=== PATIENT | female | born 1970 | race Caucasian/White ===

== ENCOUNTER 2016-07-05 10:20 | Emergency (ER) | payer OTHER ==
--- NOTE | ~2016-07-05 | CT4 ---
[facility] A Service of [facility] RADIOLOGY TEXT RESULTS PATIENT: TEDDY THOMAS LOCATION: [facility] : 68 UNIT #: [id number] AGE: [address]: Darvin Trujillo MD SEX: F ORDER DR: [id number] [facility] [address] [place], [place] [address] [id number] E MR#: [id number] Acc #: [id number] NAME: TEDDY THOMAS : 1970 SEX: F STUDY DATE/TIME: 07/05/2016 9:51 UNIT: [facility] ROOM: STUDY DESCRIPTION: CT Abd and Pelv Wo Cont Attending Physician: Darvin Trujillo M.D. Ordering Physician: Darvin Trujillo M.D. Primary Care Physician: Clive Bolden M.D. MEDICAL IMAGING REPORT This report is preliminary unless electronic signature is present EXAM CT abdomen and pelvis without contrast, 07/05/2016 HISTORY 45-year-old female with nausea, vomiting and diarrhea and back pain for [address] abdomen and pelvis, 09/08/2015 TECHNIQUE Helical scan performed through the abdomen and pelvis without oral or IV contrast. Coronal and sagittal reformatted images. This CT exam was performed with one or more of the following radiation dose reduction techniques: automatic exposure control, adjustment of mA and/or kV according to patient size, and iterative reconstruction. FINDINGS Visualized lung bases are unremarkable. The liver, spleen, pancreas, both adrenal glands, and both kidneys are within normal limits. No urinary tract stones or hydronephrosis. Gallbladder is surgically absent. Abdominal aorta normal in course and caliber with scattered atherosclerotic calcification. Small bowel is unremarkable without obstruction. Appendix is grossly normal. There is sigmoid colonic diverticulosis. There is a small focal area of soft tissue inflammatory stranding and a tiny foci of gas near the mid sigmoid colon in the left pelvis. This could represent an inflamed diverticulum in the setting of diverticulitis. Early developing small abscess is not completely excluded on this unenhanced exam. The urinary bladder, uterus, and both adnexa are unremarkable. No [facility] A Service of [facility] RADIOLOGY TEXT RESULTS PATIENT: TEDDY THOMAS [id number] [birth year] UNIT #: [id number] AGE: [address]: Darvin Trujillo MD SEX: F ORDER DR: significant free pelvic fluid. No acute bony abnormality. IMPRESSION 1. There is a small focus of soft tissue inflammation and a tiny foci of gas noted adjacent to the mid sigmoid colon in the lower left pelvis. The patient does have diverticulosis and this may represent an inflamed diverticulum and acute diverticulitis. A small developing abscess is not completely excluded on this unenhanced exam. 2. Normal appendix. 3. Negative for urinary tract stones or hydronephrosis. 4. Cholecystectomy. Dictated by... Thom Babcock M.D. THIS IS AN ELECTRONICALLY VERIFIED REPORT Thom Babcock M.D. at 07/07/2016 8:30 AM Slime TD: 07/06/2016 09:15 JOB #: [id number] MEDICAL IMAGING REPORT Page 1 of 1 COPY
[2016-07-05 09:38] LABS: URINE SOURCE CLEAN CATCH
[2016-07-05 09:39] LABS: BASOPHIL# 0.1 X10e3 (0-0.3); BASOPHIL% 1.2 % (0-2.5); EOSINOPHIL% 0.2 % (0.0-7.0); HEMATOCRIT 35.8 % (35.0-45.0); HEMOGLOBIN 11.7 gm/dL (12.0-16.0); LYMPHOCYTE# 1.2 X10e3 (1.0-3.5); LYMPHOCYTE% 11.4 % (17.0-45.0); MEAN CORPUSCULAR HEMOGLOBIN 24.3 PG (28-34); MEAN CORPUSCULAR HGB CONC 32.8 g/dL (30-36); MEAN PLATELET VOLUME 8.5 FL (6.5-11.5); MONOCYTE# 0.4 X10e3 (0-1.0); MONOCYTE% 4.1 % (3.0-12.0); NEUTROPHIL# 8.6 X10e3 (1.5-7.1); NEUTROPHIL% 83.1 % (40-75); PLATELET COUNT 248 X10e3 (140-420); RED BLOOD COUNT 4.84 X10e (3.90-5.30); RED CELL DISTRIBUTION WIDTH 19.7 % (11.0-15.5); WHITE BLOOD COUNT 10.3 X10e3 (4.0-10.5)
[2016-07-05 09:40] LABS: DIFF IND NO
[2016-07-05 09:42] LABS: URINE APPEARANCE CLEAR; URINE BILIRUBIN NEG (NEG); URINE BLOOD NEG (NEG); URINE COLOR YELLOW; URINE GLUCOSE 500 MG/DL (NEG); URINE KETONE NEG (NEG); URINE LEUKOCYTE ESTERASE NEG (NEG); URINE NITRATE NEG (NEG); URINE PROTEIN 1+ (NEG); URINE UROBILINOGEN 0.2 MG/DL (NEG)
[2016-07-05 09:45] LABS: CULTURE INDICATED? NO; URBCS1 AUWI 0-2 /[HPF] (0-2); URINE BACTERIA AUWI NEG (NEGATIVE); URINE SQUAMOUS EPITHELIAL CELL NONE SEEN /[HPF]
[2016-07-05 10:19] LABS: ALBUMIN SERUM 3.9 g/dL (3.5-5.0); ALKALINE PHOSPHATASE 87 U/L (32-92); ALT (SGPT) 20 U/L (10-40); AST (SGOT) 27 U/L (10-42); BILIRUBIN, DIRECT 0.1 mg/dL (0.0-0.2); BILIRUBIN,INDIRECT 0.3 mg/dL (0.0-0.9); BILIRUBIN,TOTAL 0.4 mg/dL (0.2-2.0); BLOOD UREA NITROGEN 12 mg/dL (9-23); CALCIUM SERUM 9.6 mg/dL (8.4-10.2); CARBON DIOXIDE 26 mmol/L (22-31); CHLORIDE 95 mmol/L (100-111); GLOM FILT RATE Estimated ABOVE60 mL/min (>60); GLUCOSE FASTING 251 mg/dL (70-110); LIPASE 19 U/L (22-51); PROTEIN TOTAL SERUM 7.8 g/dL (6.0-8.3); SODIUM 136 mmol/L (135-145)
[~2016-07-05 10:20] MED LIST: ALBUTEROL 0.5ML INH; ALLERGY MEDICAT25 M1 PO; AMLODIPINE BESYL5 MG PO; ASPIRIN81 M2 PO; FLEXERIL10 MG PO; HYDROCHLOROTHIA25 MG PO; LOPRESSOR PO; LORTAB 5/500 TA1 TA1 PO; MEDROL4 MG/DOSE- PO; MILK OF MAGNESIA PO; NAPROSYN500 MG PO; NORVASC PO; PERCOCET 7.5/321 TAB PO; PREDNISONE PO; PRINIVIL20 M1 PO; PRINIVIL40 MG PO; PROMETHAZI6.25 MG/5 PO; PROTONIX PO; VOLTAREN50 MG PO; ZESTRIL10 M2 PO; ZOLOFT50 MG PO
[2016-07-05 10:22] LABS: POTASSIUM 2.8 mmol/L (3.5-5.1)
== END 2016-07-05 13:00 | disposition home or self-care (01) ==
LOC: CED 10:20
PROVIDERS: Emergency Medicine
DX: E87.6 Hypokalemia (principal); R10.9 Unspecified abdominal pain; R11.2 Nausea with vomiting, unspecified; I10 Essential (primary) hypertension; Z88.1 Allergy status to other antibiotic agents; Z88.8 Allergy status to other drugs, medicaments and biological substances
CPT/HCPCS: 36415; 74176; 80048; 80076; 81003; 83690; 84703; 85025; 96361; 96365; 96366; 96375; 96376; 99284; J1885; J2405

== ENCOUNTER 2016-11-02 19:03 | Emergency (ER) | payer OTHER ==
[~2016-11-02] VITALS: Ht 152.4 cm; Wt 99.8 kg
[2016-11-02 20:53] LABS: BASOPHIL% 0.5 % (0-2.5); EOSINOPHIL# 0.1 X10e3 (0-0.7); EOSINOPHIL% 1.5 % (0.0-7.0); HEMATOCRIT 36.1 % (35.0-45.0); HEMOGLOBIN 11.7 gm/dL (12.0-16.0); LYMPHOCYTE# 2.9 X10e3 (1.0-3.5); LYMPHOCYTE% 32.1 % (17.0-45.0); MEAN CELL VOLUME 76.6 FL (83-96); MEAN CORPUSCULAR HEMOGLOBIN 24.9 PG (28-34); MEAN CORPUSCULAR HGB CONC 32.5 g/dL (30-36); MEAN PLATELET VOLUME 8.8 FL (6.5-11.5); MONOCYTE# 0.7 X10e3 (0-1.0); MONOCYTE% 7.4 % (3.0-12.0); NEUTROPHIL# 5.3 X10e3 (1.5-7.1); NEUTROPHIL% 58.5 % (40-75); PLATELET COUNT 238 X10e3 (140-420); RED BLOOD COUNT 4.71 X10e (3.90-5.30); RED CELL DISTRIBUTION WIDTH 17.6 % (11.0-15.5)
[2016-11-02 20:54] LABS: DIFF IND NO
[2016-11-02] MEDS ORDERED: AMLODIPINE BESYL5 MG PO (21:01)
[2016-11-02] MEDS ORDERED: ALDACTAZIDE 251 EACH PO (21:01)
[2016-11-02] MEDS ORDERED: KLOR-CON SPRIN10 MEQ PO (21:02)
[2016-11-02] MEDS ORDERED: ZOLOFT50 MG PO (21:02)
[2016-11-02] MEDS ORDERED: PROTONIX40 M1 PO (21:02)
[2016-11-02] MEDS ORDERED: METOPROLOL SUCC25 MG PO (21:03)
[2016-11-02 21:12] LABS: BUN/CREATININE RATIO 12.22; CALCIUM SERUM 9.5 mg/dL (8.4-10.2); CREATININE SERUM 0.9 mg/dL (0.6-1.4); GLOM FILT RATE Estimated 76.7 mL/min (>60); POTASSIUM 3.2 mmol/L (3.5-5.1)
== END 2016-11-02 22:19 | disposition home or self-care (01) ==
LOC: CED 19:03
PROVIDERS: Emergency Medicine
DX: M62.838 Other muscle spasm (principal); E87.6 Hypokalemia; I10 Essential (primary) hypertension; F32.9 Major depressive disorder, single episode, unspecified; F17.210 Nicotine dependence, cigarettes, uncomplicated; Z79.899 Other long term (current) drug therapy; Z88.0 Allergy status to penicillin; Z88.5 Allergy status to narcotic agent; Z88.8 Allergy status to other drugs, medicaments and biological substances
CPT/HCPCS: 36415; 80048; 85025; 99283

== ENCOUNTER 2016-11-04 23:47 | Emergency (ER) | payer OTHER ==
--- NOTE | ~2016-11-04 | CT2 ---
[facility] A Service [facility] RADIOLOGY TEXT RESULTS PATIENT: TEDDY THOMAS LOCATION: [facility] : 68 UNIT #: [id number] AGE: [address]: Ranjeet Bolanos MD SEX: F ORDER DR: [id number] [address] [address] [id number] E MR#: [id number] Acc #: [id number] NAME: TEDDY THOMAS. : 1970 SEX: F STUDY DATE/TIME: 11/05/2016 3:48 UNIT: [facility] ROOM: STUDY DESCRIPTION: CT Abd and Pelv W Cont Attending Physician: Ranjeet Bolanos M.D. Ordering Physician: Ranjeet Bolanos M.D. Primary Care Physician: No Primary Care Physician MEDICAL IMAGING REPORT This report is preliminary unless electronic signature is present EXAM CT abdomen and pelvis with contrast INDICATIONS Nausea, vomiting, generalized abdominal pain for the past 3 days. PROCEDURE Contrast-enhanced CT of the abdomen and pelvis. This CT exam was performed with one or more of the following radiation dose reduction techniques: automatic exposure control, adjustment of mA and/or kV according to patient size, and iterative reconstruction. COMPARISON 07/05/2016 FINDINGS ABDOMEN WITH CONTRAST: Included lung bases are clear. Liver, spleen, kidneys, adrenal glands, pancreas show no acute abnormality. Previous cholecystectomy. Bowel loops nondilated. No fluid collection. PELVIS WITH CONTRAST: No pelvic mass or fluid. No aggressive- appearing bone lesion. IMPRESSION 1. No acute findings in the abdomen or pelvis. 2. Not mentioned above, there are a few sigmoid diverticula without definitive evidence for acute complication. Dictated by... Oliver Kelley M.D. [facility] A [facility] RADIOLOGY TEXT RESULTS PATIENT: TEDDY THOMAS LOCATION: [facility] : 68 UNIT #: [id number] AGE: [address]: Ranjeet Bolanos MD SEX: F ORDER DR: THIS IS AN ELECTRONICALLY VERIFIED REPORT Oliver Kelley M.D. at 11/05/2016 9:52 PM Brenda TD: 11/05/2016 11:57 JOB #: [id number] MEDICAL IMAGING REPORT Page 1 of 1 COPY
[~2016-11-04 23:47] MED LIST changes: +ALDACTAZIDE 251 EACH PO; +KLOR-CON SPRIN10 MEQ PO; +METOPROLOL SUCC25 MG PO; +PROTONIX40 M1 PO
[2016-11-05 01:37] LABS: BASOPHIL# 0.1 X10e3 (0-0.3); BASOPHIL% 0.6 % (0-2.5); EOSINOPHIL# 0.1 X10e3 (0-0.7); EOSINOPHIL% 0.5 % (0.0-7.0); HEMATOCRIT 39.3 % (35.0-45.0); HEMOGLOBIN 12.5 gm/dL (12.0-16.0); LYMPHOCYTE# 1.8 X10e3 (1.0-3.5); LYMPHOCYTE% 15.2 % (17.0-45.0); MEAN CORPUSCULAR HEMOGLOBIN 24.4 PG (28-34); MEAN CORPUSCULAR HGB CONC 31.7 g/dL (30-36); MONOCYTE# 0.6 X10e3 (0-1.0); MONOCYTE% 5.3 % (3.0-12.0); NEUTROPHIL# 9.1 X10e3 (1.5-7.1); NEUTROPHIL% 78.4 % (40-75); PLATELET COUNT 215 X10e3 (140-420); RED BLOOD COUNT 5.11 X10e (3.90-5.30); RED CELL DISTRIBUTION WIDTH 17.7 % (11.0-15.5); WHITE BLOOD COUNT 11.6 X10e3 (4.0-10.5)
[2016-11-05 01:40] LABS: DIFF IND NO
[2016-11-05 02:09] LABS: ALBUMIN SERUM 4.6 g/dL (3.5-5.0); BILIRUBIN, DIRECT 0.1 mg/dL (0.0-0.2); BILIRUBIN,INDIRECT 0.6 mg/dL (0.0-0.9); BILIRUBIN,TOTAL 0.7 mg/dL (0.2-2.0); BUN/CREATININE RATIO 16.36; CALCIUM SERUM 9.6 mg/dL (8.4-10.2); CREATININE SERUM 1.1 mg/dL (0.6-1.4); GLOM FILT RATE Estimated 59.8 mL/min (>60); PROTEIN TOTAL SERUM 8.7 g/dL (6.0-8.3)
[2016-11-05 02:37] LABS: URINE SOURCE CLEAN CATCH
[2016-11-05 02:45] LABS: URINE APPEARANCE CLOUDY; URINE BILIRUBIN NEG (NEG); URINE BLOOD NEG (NEG); URINE COLOR YELLOW; URINE GLUCOSE 250 MG/DL (NEG); URINE KETONE TRACE (NEG); URINE LEUKOCYTE ESTERASE TRACE (NEG); URINE NITRATE NEG (NEG); URINE PH 5.5 (5-8); URINE PROTEIN 1+ (NEG); URINE SPECIFIC GRAVITY 1.022 (1.003-1.035); URINE UROBILINOGEN 0.2 MG/DL (NEG)
[2016-11-05 02:52] LABS: CULTURE INDICATED? YES; URINE BACTERIA AUWI 1+ (NEGATIVE); URINE SQUAMOUS EPITHELIAL CELL FEW /[HPF]
[2016-11-05 02:59] LABS: AMPHETAMINE NEG (NEG); BARBITURATES NEG (NEG); BENZODIAZEPINES NEG (NEG); COCAINE POS (NEG); MARIJUANA NEG (NEG); OPIATES NEG (NEG); TRICYCLIC ANTIDEPRESSANTS NEG (NEG); U METHADONE NEG (NEG)
[2016-11-05 03:08] LABS: URINE MUCUS PRESENT
[2016-11-05] MEDS ORDERED: METOPROLOL SUCC25 MG PO (03:19)
[2016-11-05] MEDS ORDERED: NORVASC10 MG PO (03:20)
[2016-11-05] MEDS ORDERED: PROTONIX PO (03:20)
[2016-11-05] MEDS ORDERED: EFFER-K 10 MEQ10 MEQ PO (03:21)
[2016-11-05] MEDS ORDERED: ZOLOFT50 MG PO (03:21)
== END 2016-11-05 04:50 | disposition home or self-care (01) ==
LOC: CED 23:47
PROVIDERS: Emergency Medicine
DX: R11.2 Nausea with vomiting, unspecified (principal); R82.5 Elevated urine levels of drugs, medicaments and biological substances; E78.5 Hyperlipidemia, unspecified; I10 Essential (primary) hypertension; F32.9 Major depressive disorder, single episode, unspecified; Z98.890 Other specified postprocedural states; F17.200 Nicotine dependence, unspecified, uncomplicated; Z88.8 Allergy status to other drugs, medicaments and biological substances
CPT/HCPCS: 36415; 74177; 80048; 80076; 80307; 81003; 83690; 84703; 85025; 87086; 96361; 96374; 96375; 99284; J2765; Q9967